=== PATIENT | male | born 1965 | race African-American/Black ===

== ENCOUNTER 2016-12-09 08:42 | Emergency (ER) | payer MEDICAID, OTHER ==
[~2016-12-09] VITALS: Ht 180.3 cm; Wt 84.0 kg
[~2016-12-09 08:42] MED LIST: AMLO2.5T2 PO; ASPI-1035 PO; CEPH-569 PO
[2016-12-09] MEDS ORDERED: KETOROLAC 60MG/2ML VIAL IM ONE (09:45)
[2016-12-09] MEDS ORDERED: LIDOCAINE HCL/EPINEPHRINE 1%-EPI 1:100,000 20 ML VIAL MC ONE (09:45)
[2016-12-09 10:55] VITALS: BP 120/77
== END 2016-12-09 11:07 | disposition home or self-care (01) ==
LOC: ER 08:44
DX: L03.115 Cellulitis of right lower limb (principal); F12.10 Cannabis abuse, uncomplicated
CPT/HCPCS: 10060; 96372; 99283; J1885; J3490; X7700; Z7610

== ENCOUNTER 2016-12-10 11:00 | Emergency (ER) | payer MEDICAID, OTHER ==
[~2016-12-10] VITALS: Ht 182.9 cm; Wt 86.0 kg
[2016-12-10] MEDS ORDERED: KETOROLAC 30MG/ML VIAL IV STA (12:17)
[2016-12-10] MEDS ORDERED: ASPIRIN 325MG EC TABLET PO ONE (12:30)
[2016-12-10] MEDS ORDERED: CEFAZOLIN 1000MG PREMIX 50 ML IV ONE (12:30)
[2016-12-10 12:51] LABS: BASOPHILS % 0.7 % (0.0-2.0); EOSINOPHILS % 1.5 % (0.0-5.0); HEMATOCRIT. 39.5 % (42.0-52.0); HEMOGLOBIN. 13.4 g/dL (14.0-18.0); LYMPHOCYTES % 23.5 % (20.0-50.0); MEAN CORPUSCULAR HEMOGLOBIN 31.2 pg (28.0-32.0); MEAN CORPUSCULAR HGB CONC 33.9 g/dL (31.0-37.0); MEAN CORPUSCULAR VOLUME 92.2 fL (80.0-94.0); MEAN PLATELET VOLUME 8.7 fl (7.4-10.4); MONOCYTES % 12.1 % (2.0-8.0); NEUTROPHILS % 62.2 % (40.0-76.0); PLATELET 249 x1000/uL (130-400); RED BLOOD CELL COUNT 4.28 mill/uL (4.7-6.1); RED CELL DISTRIBUTION WIDTH 13.3 % (11.6-14.6); WHITE BLOOD COUNT 7.5 x1000/uL (4.5-11.0)
[2016-12-10 13:00] LABS: PARTIAL THROMBOPLASTIN TIME 28.6 sec (24.0-34.0); PROTHROMBIN TIME 10.8 sec
[2016-12-10 13:08] LABS: ALANINE AMINOTRANSFERASE 24 IU/L (13-61); ALBUMIN 3.1 g/dL (3.4-5.0); ANION GAP 11; CALCIUM 8.6 mg/dL (8.5-10.1); CARBON DIOXIDE 30 mEq/L (21-32); CHLORIDE 107 mEq/L (98-107); ETHANOL BLOOD < 10 mg/dL; INDEX HEMOLYSI 1 (1-3); INDEX ICTERIC 1 (1-4); INDEX LIPEMIC 1 (1-3); LIPASE 169 IU/L (73-393); NT PRO B-TYPE NATRIURETIC PEP 79 pg/mL (5-125); TROPONIN I < 0.02 ng/mL (0.00-0.04); UREA NITROGEN BLOOD 15 mg/dL (7-21); eGFR > 60 mL/min (>60)
[2016-12-10 15:00] VITALS: BP 123/88
[2016-12-10] MEDS ORDERED: TETANUS, DIPHTHERIA, PERTUSSIS VAC/PF 0.5ML (>7YR OLD) IM ONE (15:00)
== END 2016-12-10 15:58 | disposition home or self-care (01) ==
LOC: ER 11:59
DX: R07.89 Other chest pain (principal); L02.415 Cutaneous abscess of right lower limb; F17.210 Nicotine dependence, cigarettes, uncomplicated; F12.10 Cannabis abuse, uncomplicated
CPT/HCPCS: 36415; 71010; 80053; 83690; 83880; 84484; 85025; 85610; 85730; 87040; 93005; 96365; 96375; 99285; G0482; J0690; J1885; Z7610; 96374